=== PATIENT | female | born 1960 | race Caucasian/White ===

== ENCOUNTER 2019-01-14 16:15 | Emergency (ER) | payer OTHER, SELFPAY ==
[2019-01-14 16:16] VITALS: BP 142/82; PULSE 81; RESP 16; O2SAT 97
[2019-01-14 16:20] VITALS: BP 142/82; PULSE 88; RESP 16; TEMP 37.1; O2SAT 96
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
[2019-01-14] MEDS: Ketorolac 60 MG/2 ML Vial IM (16:45)
[2019-01-14 17:29] VITALS: BP 132/69; PULSE 69; RESP 16; O2SAT 97
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
== END 2019-01-14 17:50 | disposition home or self-care (01) ==
PROVIDERS: Emergency Provider Emergency Medicine
DX: S20.219A Contusion of unspecified front wall of thorax, initial encounter (principal); S30.1XXA Contusion of abdominal wall, initial encounter; V43.52XA Car driver injured in collision with other type car in traffic accident, initial encounter; Y93.9 Activity, unspecified; Y92.9 Unspecified place or not applicable; Y99.9 Unspecified external cause status
CPT/HCPCS: 71250; 74176; 96372; 99284; A4216

== ENCOUNTER → 2019-08-18 15:25 | Outpatient (CLI) | payer OTHER, SELFPAY ==
--- NOTE | 2019-08-18 15:36 | CT_ITS ---
STUDY: CT LEFT KNEE AND LEFT HIP WITHOUT CONTRAST REASON FOR EXAM: Female, 58 years old. Left hip osteoarthritis, surgical planning for Makoplasty. RADIATION DOSAGE (If Supplied By Facility): CTDIvol = ( 13.78 ) mGy, DLP = ( 857.75 ) mGycm TECHNIQUE: Transaxial CT imaging of the left hip and left knee was performed. Coronal and sagittal images were reformatted. Individualized dose optimization techniques were used for this CT. COMPARISON: None. FINDINGS: Images through the left hip and knee performed for the purpose of surgery planning for Makoplasty. Exam is performed for diagnostic purposes. Incidental note is made of degenerative disease at L5-S1 along with advanced degenerative disease at the left hip. Additionally degenerative disease with narrowing of the joint spaces at the level of the left knee, more so at the medial joint compartment. Diverticulosis with no signs of diverticulitis. Left ovarian cyst measuring approximately 2.5 cm. Bulbous uterus with calcification likely representing calcified fibroids. CT/Extremity Lower without Contra IMPRESSION: CT of the left hip and knee as described. Electronically Signed: Anna Morgan MD at 1:39 EDT , Service support ,
== END ==
PROVIDERS: Referring Provider Specialist; Visit Provider Specialist
DX: M16.12 Unilateral primary osteoarthritis, left hip (principal)
CPT/HCPCS: 73700

== ENCOUNTER 2019-09-30 08:19 | Observation (INO) | payer OTHER, SELFPAY ==
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
--- NOTE | 2019-09-24 15:21 | EKG12_ITS ---
Test Reason : PRE-OP Blood Pressure : / mmHG Vent. Rate : 077 BPM Atrial Rate : 077 BPM P-R Int : 154 ms QRS Dur : 100 ms QT Int : 382 ms P-R-T Axes : 067 -40 041 degrees QTc Int : 432 ms Normal sinus rhythm Left axis deviation Abnormal ECG Confirmed by OLIVIA QUEVEDO, DADA ([id number]), purchase request editor SUSANA GOLD ([id number]) on 09/28/2019 2:45:08 PM Referred By: BINA Confirmed By:MIGNON BAKER MD
[2019-09-24 16:15] LABS: Absolute Lymphocyte Count 2.26 X10^3/uL (0.83-4.51); Absolute Neutrophil Count 2.9 X10^3/uL (2.0-7.7); Basophil# 0.02 X10^3/uL; Basophil% 0.3 % (0-1); Eosinophil# 0.06 X10^3/uL; Hemoglobin 12.5 g/dL (12.0-15.0); Lymphocyte # 2.26 X10^3/ul (4.0); Lymphocyte % 37.4 % (19-41); Mean Corp Hgb Conc 32.1 g/dL (32-36); Mean Corpuscular Hgb 27.4 pg (27.0-32.0); Mean Corpuscular Volume 85.5 fL (81-99); Mean Platelet Vol. 9.6 fl (6.2-12.0); Monocyte# 0.81 X10^3/uL; Monocyte% 13.4 % (0-10); NRBC Flagged by Analyzer 0 % (0-5); Neutrophil # 2.88 X10^3/uL (2.7-7.7); Neutrophil % 47.7 % (47-70); Platelet Count 190 K/mm3 (150-450); RBC Distribution Width CV 13.2 % (11.6-14.6); RBC Distribution Width SD 41.4 fl (35.1-43.9); Red Blood Count 4.56 M/mm3 (4.2-5.4)
[2019-09-24 16:40] LABS: Anion Gap 6 (5-15); BUN 24 mg/dL (7-18); BUN/Creat Ratio 34.3 RATIO (10-20); Calcium,Total 8.7 mg/dL (8.5-10.1); Chloride 108 mmol/L (98-107); EST Glomerular Filtration Rate 91 mL/min (>60); Est Glom Filt Rate - Afr Amer 110 mL/min (>60); Glucose 108 mg/dL (74-106); Potassium 3.8 mmol/L (3.5-5.1); Sodium Level 141 mmol/L (136-145)
[2019-09-30] VITALS (14 sets, daily range): BP systolic 98–137; BP diastolic 55–77; PULSE 63–97; RESP 16–18; TEMP 36.1–36.9; O2SAT 97–100; BMI 30.8
[2019-09-30] MEDS: Lactated Ringers 1,000 ML 999 ML IV ×2 (09:05→12:42)
[2019-09-30 09:10] LABS: Bedside Glucose 75 mg/dL (70-110)
[2019-09-30] MEDS: Lactated Ringers 1,000 ML 100 ML IV (09:10)
[2019-09-30] MEDS: Celecoxib 200 MG Capsule 400 MG PO (09:11)
[2019-09-30] MEDS: Scopolamine 1mg/72hr Patch 1 PATCH TRANSDERM. (09:11)
[2019-09-30] MEDS: Gabapentin 600 MG Tablet PO (09:11)
[2019-09-30] MEDS: Acetaminophen 500 MG Tablet 1000 MG PO ×3 (09:11→21:06)
--- NOTE | 2019-09-30 10:35 | PCM.OPRPT ---
Report of Operation Date of Procedure: 09/30/19 Pre-Operative Diagnosis: Left hip primary osteoarthritis Post-Operative Diagnosis: Left hip primary osteoarthritis Surgery/Procedure Performed:: Left minimally invasive direct anterior hip replacement Description of Surgical Findings:: Stable hip with equal leg lengths systems requirements planner: Sage Cui Type of Anesthesia:: Spinal Anesthesiologist: Sharif Rivera Special Medications: 2 g Ancef, 2 g TXA lavage in wound prior to closure, 10 mg Decadron, joint cocktail (5 mg Duramorph, 30 mL of 0.5% Ropivicaine, 1000 units of epinephrine, 30 mg of Toradol) Specimen's removed: Bony cuts Estimated Blood Loss (mL): 200 Fluids Replaced: 1200 mL crystalloid Description of Procedure: Components used: 1. Accolade 2 Tamie femoral stem size 4, 132 2. Buckingham trident 2 acetabular shell size 48 mm 3. Tamie X3 polyethylene D 4. Tamie Biolox delta 32mm, -4mm femoral head Brief history operative indications: 56 yo F who failed conservative measures for their hip osteoarthritis. X-rays were consistent with osteoarthritis including joint space narrowing, osteophyte formation and subchondral cysts. Total hip replacement was discussed with the patient with risks and benefits including but not limited to blood loss, DVTs, PEs, neurovascular damage, dislocation, general risks of anesthesia including loss of life. Patient demonstrated an understanding medical clearance is obtained the patient was consented for surgery. Procedure: On the date of procedure the patient's L hip was marked in the preoperative area. Patient was then taken back to the operating room where anesthesia assumed control of the C-spine and airway and administered anesthetic. Patient was transferred to the operating table and placed in the supine position. The hips were placed at the break of the bed and a sacral bump was placed. The L lower extremity was then prepped out in a sterile fashion using chlorhexidine while the surgeon scrubbed. The PA was vital in the positioning of the patient. Upon reentering the room the L lower extremity was draped in the standard orthopedic fashion and the incision was marked. A timeout was called and everyone agreed upon the side, the site, the procedure be performed, antibody given, and patient's identity. At this time incision was made through skin, subcutaneous tissue, and fat down to fascia. The fascia was then incised and the TFL was retracted laterally. A retractor was placed on the lateral border of the femoral neck. Attention was directed to the inferior portion of the approach and all crossing vessels were identified and appropriately coagulated. A retractor was then placed on the medial portion of the femoral neck. The anterior capsule was then cleared of all soft tissue and then H shaped capsulotomy was made. The retractors were then placed inside the capsule. The femoral neck was identified and a cleanup cut was made. At this time a power corkscrew was used to remove the femoral head. Attention was then turned toward the acetabulum where the soft tissues were appropriately retracted and the acetabulum was sequentially reamed to 48 mm. A 48 mm cup was then selected and impacted into place. Acetabular liner was impacted into place and locking mechanism was verified. The position of the acetabular cup was then verified under live fluoroscopy. Attention was then turned to the femur. Soft tissue releases on the medial and lateral femoral neck were appropriately done, the leg was externally rotated and lateralized. A Penny retractor was placed medially and proximally to the greater trochanter this allowed appropriate visualization and exposure of the femoral canal. Rongeour was then used to remove excess lateral bone. A canal finder and entry broach were used to open the proximal canal. Once we verified we were down the femoral canal we subsequently broached up to a size 4 femur. The appropriate neck was placed in the previously selected head was trialed with a -4 mm neck. Traction was pulled and the hip was reduced with internal rotation. Once it was appropriately reduced and stability was checked. There was minimal shuck, equal leg lengths and appropriate stability with hyperextension and external rotation as well as with 90? flexion and internal rotation. Fluoroscopy was then also used to verify the position of the components and leg lengths using the contralateral side for comparison. The trial components were then dislocated the proximal femur was again exposed and the components were removed from the wound. The final components were verified and opened. The wound was copiously irrigated out with normal saline. The acetabulum was checked for any residual debris. The final components were placed and impacted. Traction and internal rotation were again used to reduce the hip. After adequate reduction the hip remained stable with appropriate leg lengths. The final components were once again checked with live fluoroscopy and were found to be satisfactory. The wound was then copiously irrigated with normal saline once more, and hemostasis was obtained. Closure was then done using #1 Vicryl runner to close the fascia. A 2-0 vicryl interuppted sutures were used to close the subcutaneous skin. A 3-0 Monocryl and Steri-Strips were used for final skin closure. A Silverlon dressing was placed. Patient was awakened by anesthesia and transferred to the [facility]. Patient was then transferred to the PACU for recovery. Postoperative plan: Patient will get 24 hours postop antibiotics. Patient will get in-house physical therapy and will be weight-bear as tolerated. Patient will follow up in office in 2 weeks for a wound check and x-rays. Grafts/Implants Used: Buckingham - Complications No intraoperative complications - Admit VTE Documentation VTE Present on Admission: No VTE Mechan Device Prophylaxis: SCD's, Thigh High LEOPOLDO Hose VTE Pharm Prophylaxis ordered?: Yes
[2019-09-30] MEDS: Cefazolin 2 GM in 0.9% Normal Saline 100 ML IV (10:46)
[2019-09-30] MEDS: dexAMETHasone 10 MG/ML Vial IV (10:59)
--- NOTE | 2019-09-30 11:19 | RAD_ITS ---
STUDY: X-RAY - PELVIS AND LEFT HIP REASON FOR EXAM: Female, 59 years old. POST OP TOTAL HIP TECHNIQUE: 1 views of the pelvis and hip. COMPARISON: None. FINDINGS: The patient is status post left total hip replacement. There is good alignment. RAD/Hip 1 view with Pelvis IMPRESSION: Status post left hip replacement. There is good alignment. Electronically Signed: Bigg Cristina, at 12:16 EDT , Service support ,
--- NOTE | 2019-09-30 12:45 | RAD_ITS ---
STUDY: X-RAY - PELVIS AND LEFT HIP REASON FOR EXAM: Female, 59 years old. POST OP LEFT HIP TECHNIQUE: 2 views of the pelvis and hip. COMPARISON: None. FINDINGS: The patient is status post left hip replacement. There is good alignment. Postoperative soft tissue changes. RAD/Hip Min 2 Views (Portable) IMPRESSION: Status post left total hip replacement. There is good alignment. Postoperative soft tissue changes. Electronically Signed: Bigg Cristina, at 13:03 EDT , Service support ,
[2019-09-30] MEDS: Lactated Ringers 1,000 ML 125 ML IV (13:43)
[2019-09-30] MEDS: Famotidine 20 MG Tablet PO (15:18)
--- NOTE | 2019-09-30 16:00 | CASEMGMT ---
RN CM KENNEL HAND CM to room to meet with patient for initial transition planning/care coordination assessment. RN EVANGELISTA introduced self and role at [facility].? Pt voices understanding and consents to assessment at this time.? Pt resting in bed in no distress at this time.? Pt is A/O at this time and answers all questions appropriately.?? Care providers, pharmacy, and demographics verified/updated at this time. PCP: Pt states does she just saw a family doctor for referral to Dr Whitt, but does not remember her name. Call placed to Dr Whitt's office. Pt's PCP is Dr Luic Guardado @ [facility] Practice Specialists: Dr Whitt--Orthopaedic surgeon Preferred Pharmacy:[facility] Retail Insurance: MMO Prescription Benefit:? [facility] does not have LW or HCPOA.? Interested in more information and would like to talk with to complete paperwork. Pt given Crm Functional Analyst card and AD info. ANNI, Latesha Bailon, made aware. LNOK: , Carlos. Living Arrangements: Lives with her and 20-yr old son lives with them. Pt's father also lives with them. Pt independent. Lives in a one-story home w/4 steps to enter, with railing. Transportation: Pt/. Denies transportation concerns. DME: [facility] has the following DME:?built-in shower chair, raised toilet seat, WW? Pt states no need for further DME at this time.? HHC/SNF: No history of SNF. Had HHC in the past after rt hip surgery about 7 yrs ago. Pt wishes to return home and states has no concerns with going home at time of discharge.?[facility] has OP therapy already set up @ [facility]. ? CM to follow for any discharge planning/needs.? Pt voices no concerns/needs at this time.? Advised pt to ask for CM if any further questions/concerns/needs arise.? Voices understanding. PLAN: Home w/OP therapy @ [facility] consult for NIMCO MENESES RN, CM
[2019-09-30] MEDS: Ensure Surgery 237 ML LIQUID PO (17:22)
[2019-09-30] MEDS: Ketorolac 15 MG/ML Vial IV (18:25)
[2019-09-30] MEDS: 0.9% Saline Lock 10 ML Syringe IV (18:25)
[2019-09-30] MEDS: Cefazolin 1 GM/50 ML BAG IV (18:25)
[2019-09-30] MEDS: traMADol 50 MG Tablet PO (19:55)
[2019-09-30] MEDS: Morphine 2 MG/ML Syringe IV (21:05)
[2019-09-30] MEDS: Senna/Docusate Sodium 1 Tablet 2 TABLET PO (21:06)
[2019-09-30] MEDS: Morphine 4 MG/ML Syringe IV (23:25)
[2019-10-01 03:00] VITALS: BP 118/57; PULSE 68; RESP 16; TEMP 36.9; O2SAT 98
[2019-10-01] MEDS: Ketorolac 15 MG/ML Vial IV ×2 (03:16→11:46)
[2019-10-01] MEDS: traMADol 50 MG Tablet PO ×2 (03:16→11:45)
[2019-10-01] MEDS: Cefazolin 1 GM/50 ML BAG IV (03:25)
[2019-10-01 05:49] LABS: Hemoglobin 9.2 g/dL (12.0-15.0); Mean Corp Hgb Conc 32.9 g/dL (32-36); Mean Corpuscular Hgb 28.1 pg (27.0-32.0); Mean Corpuscular Volume 85.6 fL (81-99); Mean Platelet Vol. 9.5 fl (6.2-12.0); Platelet Count 178 K/mm3 (150-450); RBC Distribution Width CV 13.2 % (11.6-14.6); RBC Distribution Width SD 41.1 fl (35.1-43.9); Red Blood Count 3.27 M/mm3 (4.2-5.4)
[2019-10-01 06:03] LABS: Anion Gap 5 (5-15); BUN 14 mg/dL (7-18); BUN/Creat Ratio 26.9 RATIO (10-20); Calcium,Total 8.3 mg/dL (8.5-10.1); Chloride 105 mmol/L (98-107); Creatinine, Serum 0.52 mg/dL (0.55-1.02); EST Glomerular Filtration Rate 128 mL/min (>60); Est Glom Filt Rate - Afr Amer 155 mL/min (>60); Estimated Creatinine Clearance 100.59 ml/min; Glucose 105 mg/dL (74-106); Potassium 3.9 mmol/L (3.5-5.1); Sodium Level 140 mmol/L (136-145)
[2019-10-01] MEDS: Acetaminophen 500 MG Tablet 1000 MG PO (06:31)
[2019-10-01] MEDS: Rivaroxaban 10 MG Tablet PO (06:31)
[2019-10-01 07:32] VITALS: BP 107/62; PULSE 64; RESP 16; TEMP 36.3; O2SAT 99
[2019-10-01] MEDS: Ensure Surgery 237 ML LIQUID PO ×2 (07:43→11:51)
[2019-10-01] MEDS: Senna/Docusate Sodium 1 Tablet 2 TABLET PO (07:43)
--- NOTE | 2019-10-01 09:10 | PCM.PN.ORT ---
Subjective: The patient was sitting in bedside chair upon examination. Patient denies any chest pain, shortness of breath, dizziness, lightheadedness, nausea or vomiting, or calf pain. Pain is controlled on medications. Patient reports having to dressing changes due to drainage. Other than the drainage patient's pain is been very well controlled and doing well postoperatively. Objective: Vital signs stable and afebrile. Patient is able to plantarflex and dorsiflex actively. Sensation is intact to light touch to saphenous, sural, superficial and deep peroneal, and tibial distribution. Dressing is drainage over the medial one third of the dressing with remaining dressing clean dry and intact. Thigh is soft and supple Negative Homans bilaterally, negative signs and symptoms of DVT. - Physical Exam Vitals/I&O's: Vital Signs Temp Pulse Resp BP Pulse Ox 97.3 F L 64 16 107/62 99 10/01/19 07:32 10/01/19 07:32 10/01/19 07:32 10/01/19 07:32 10/01/19 07:32 Oxygen Flow Rate (L/min) 6 Oxygen Delivery Method Room Air Weight: 81.4 kg Body Mass Index (BMI) 30.8 Intake and Output for Last 24 Hours 09/29/19 09/30/19 10/01/19 23:59 23:59 23:59 Intake Total 3440.00 / 3440.00 1650 / 1650 Balance 3440.00 / 3440.00 1650 / 1650 General: Alert, Oriented x3, Cooperative, No apparent distress Microbiology Past 72 Hours 09/29/19 09:05 Mucosa - Nasopharyngeal Coronavirus COVID-19 PCR - Final Laboratory Results 09/30/19 08:54: POC Glucose 75 10/01/19 05:23: WBC 11.0, RBC 3.27 L, Hgb 9.2 L, Hct 28.0 L, MCV 85.6, MCH 28.1, MCHC 32.9, RDW Std Deviation 41.1, RDW Coeff of [place] 13.2, Plt Count 178, MPV 9.5 10/01/19 05:23: Sodium 140, Potassium 3.9, Chloride 105, Carbon Dioxide 30.0, Anion Gap 5, BUN 14, Creatinine 0.52 L, Estim Creat Clear Calc 100.59, Est GFR (MDRD) Af Amer 155, Est GFR (MDRD) Non-Af 128, BUN/Creatinine Ratio 26.9 H, Glucose 105, Calcium 8.3 L Current Medications Acetaminophen (Tylenol) 1,000 mg PO Q8 COUNTS INCLUDE 234 BEDS AT THE [facility] Last Admin: 10/01/19 06:31 Dose: 1,000 mg Documented by: Enteral Nutritional Formula (Ensure Surgery) 237 ml PO TIDCM COUNTS INCLUDE 234 BEDS AT THE [facility] Last Admin: 10/01/19 07:43 Dose: 237 ml Documented by: Famotidine (Pepcid) 20 mg PO DAILY COUNTS INCLUDE 234 BEDS AT THE [facility] Last Admin: 10/01/19 07:43 Dose: Not Given Documented by: Sodium Chloride () 250 mls @ 15 mls/hr IV .[id number] PRN PRN Reason: Saline Flush Ketorolac Tromethamine (Toradol (Bkc)) 15 mg IV Q6H PRN PRN PRN Reason: Pain Score 1-5/10 Stop: 10/02/19 18:01 Last Admin: 10/01/19 03:16 Dose: 15 mg Documented by: Meloxicam (Mobic) 7.5 mg PO BID COUNTS INCLUDE 234 BEDS AT THE [facility] Morphine Sulfate () 2 - 4 mg IV Q2H PRN PRN PRN Reason: Pain Score 4-10/10 Last Admin: 09/30/19 21:05 Dose: 2 mg Documented by: Morphine Sulfate () 2 - 4 mg IV Q2H PRN PRN PRN Reason: Pain Score 4-10/10 Last Admin: 09/30/19 23:25 Dose: 4 mg Documented by: Ondansetron HCl (Zofran) 4 mg IV Q8H PRN PRN PRN Reason: NAUSEA Promethazine HCl (Phenergan) 12.5 mg IM Q6H PRN PRN; Protocol PRN Reason: NAUSEA/VOMITING Rivaroxaban (Xarelto) 10 mg PO DAILY@0600 COUNTS INCLUDE 234 BEDS AT THE [facility] Last Admin: 10/01/19 06:31 Dose: 10 mg Documented by: Senna/Docusate Sodium (Senokot-S, Gisselle-Colace) 2 tablet PO BID COUNTS INCLUDE 234 BEDS AT THE [facility] Last Admin: 10/01/19 07:43 Dose: 2 tablet Documented by: Sodium Chloride () 10 - 40 ml IV UD PRN PRN Reason: SALINE FLUSH Last Admin: 09/30/19 18:25 Dose: 10 ml Documented by: Tramadol HCl (Ultram) 50 - 100 mg PO Q6H PRN PRN PRN Reason: Pain Score 4-10/10 Last Admin: 10/01/19 03:16 Dose: 100 mg Documented by: Medical Necessity - Tobacco Use Smoking Status: Former smoker Tobacco Use: Non-smoker Assessment/Plan 1. S/P left direct anterior total hip arthroplasty POD #1 2. Continue Pain Medications: Tylenol and tramadol 3. DVT Prophylaxis: Xarelto due to underlying factor V Leiden. Will use Xarelto for 2 weeks postoperatively and then switch over to aspirin 81 mg at her 2-week postop visit 4. PT/OT: Weightbearing as tolerated 5. H & H: 9.2/28.0, asymptomatic 6. Encouraged Incentive Spirometry 7. Disposition: Patient did have some postoperative draining that did require dressing changes. We will continue to monitor this dressing through the morning. Patient may have to require additional dressing or switch over to ABDs. Plan will be for discharge home today unless there are complications with drainage. Please contact orthopedics if this changes. Otherwise will plan for discharge with prescriptions sent to [facility]. Patient will follow-up per postop instructions. She has outpatient physical therapy established. I have reviewed the [place] Automated Rx Reporting System (OARRS) report for this patient for refill pattern and other prescriber involvement as part of the appropriate surveillance for the provision of acute and chronic controlled medications. The report was requested and reviewed on the date of this entry and was considered in the prescribing process.
--- NOTE | 2019-10-01 09:19 | DCINST_ITS ---
Discharge Diet: No Restrictions Discharge Activity: May Not Drive - while taking narcotic pain medications. May shower in (days): 1 - Dressing must be intact to skin. Turn dressing away from water Ice area for (Minutes): 20 - Every 1-2 hours while awake Weight Bearing Status: Weight bearing as tolerated Elevate: Operative Extremity Additional Activity Instructions:: Wear elastic stockings for 2 weeks. DO NOT use alcohol with narcotic pain medication. DO NOT make important decisions while taking narcotic medication. If you have problems with taking your medication (rash, itching, nausea, etc.) call the office at once. Call your doctor if your incision/area has: Increased Pain/ Swelling, Increased Redness, Foul Smelling Discharge Call your doctor if you observe: Fever of 101 or Higher Remove Dressing in (days):: 4 - Okay to remove dressing on October 05, 2019 Additional Instructions: Follow orthopedic postop instructions Allergies/Adverse Reactions: Allergies No Known Allergies Allergy (Verified 09/30/19 08:46) Medications to take at Discharge Cholecalciferol (Vitamin D3) [Vitamin D3] 25 mcg PO DAILY 09/23/19 Acetaminophen [Tylenol] 1,000 mg PO Q8 #100 tab 10/01/19 Rivaroxaban [Xarelto] 10 mg PO DAILY@0600 #13 tab 10/01/19 Senna/Docusate Sodium [Senokot-S] 2 tab PO BID #10 tab 10/01/19 traMADol [Ultram] 50 - 100 mg PO Q6H PRN PRN 6 Days #48 tablet 10/01/19 The following prescriptions were given: Senna/Docusate Sodium [Senokot-S] 2 tab PO BID #10 tab Transmission Status: Pending to [facility] Acetaminophen [Tylenol] 1,000 mg PO Q8 #100 tab Transmission Status: Pending to [facility] traMADol [Ultram] 50 - 100 mg PO Q6H PRN PRN 6 Days #48 tablet PRN Reason: Pain Score 4-10/10 Transmission Status: Sent to [facility] Rivaroxaban [Xarelto] 10 mg PO DAILY@0600 #13 tab Transmission Status: Pending to [facility] Primary Care Physician: Luci Guardado NP-C [Primary Care Provider] - Test Results: Test results from this visit will be discussed in further detail at your follow- up appointment, if applicable. Please Follow Up With: Physical Therapy When: 10/05/19 Please Follow Up With: Imer Hogan PA-C When: 10/14/19 @ 9:00 am
--- NOTE | 2019-10-01 10:11 | CASEMGMT ---
Social Work Note SW received referral for advanced directives. Pt completed advanced directives. Original provided to pt and copy placed on pt's chart. Latesha Savage BLOOD DONOR RECRUITER, EMPLOYEE ADVISER
--- NOTE | 2019-10-01 11:41 | PHA.DC.MC ---
Pharmacy Service has performed discharge medication reconciliation and counseling for this patient. 1. TRAMADOL 50-100MH PO Q6H PRN PAIN 4-10/10 FOR 6 DAYS 2. SENNA/DOCUSATE 2T PO BID X 5 DAYS 3. RIVAROXABAN 10MG PO DAILY 4. ACETAMINOPHEN 1000MG PO Q8H The patient's discharge medication list was reviewed for discrepancies and discrepancies were resolved. Home Medications Cholecalciferol (Vitamin D3) [Vitamin D3] 25 mcg PO DAILY 09/23/19 Acetaminophen [Tylenol] 1,000 mg PO Q8 #100 tab 10/01/19 Rivaroxaban [Xarelto] 10 mg PO DAILY@0600 #13 tab 10/01/19 Senna/Docusate Sodium [Senokot-S] 2 tab PO BID #10 tab 10/01/19 traMADol [Ultram] 50 - 100 mg PO Q6H PRN PRN 6 Days #48 tab 10/01/19 The patient was counseled on the following discharge medications and changes in medications for homegoing were reviewed. The Reason for Use, instructions for use, and potential side effects were reviewed for all new medications. The patient's questions regarding all of their medications were answered. The patient was able to verbally demonstrate an understanding of their discharge medications.
[2019-10-01] MEDS: 0.9% Saline Lock 10 ML Syringe IV (11:46)
== END 2019-10-01 13:55 | disposition home or self-care (01) ==
LOC: SDC 09:16 → MS3 09:16
PROVIDERS: Admitting Provider Specialist; PCP Nurse Practitioner Family; Referring Provider Specialist; Visit Provider Specialist
PROC: (CPT 27284; principal; 2019-09-30 09:35)
DX: M16.12 Unilateral primary osteoarthritis, left hip (principal); R94.31 Abnormal electrocardiogram [ECG] [EKG]; Z87.891 Personal history of nicotine dependence; D68.51 Activated protein C resistance
CPT/HCPCS: 01214; 27130; 73501; 73502; 76000; 80048; 82962; 85025; 85027; 87081; 87635; 93005; 96361; 96365; 96366; 96375; 96376; 97110; 97116; 97162; 97166; 99218; 99251; C1776; G2023; J7120; A4216; G0378; G0379; G0463; U0002

== ENCOUNTER → 2022-04-27 | Outpatient (CLI) | payer OTHER, SELFPAY ==
--- NOTE | 2022-04-27 09:35 | NM_ITS ---
STUDY: THREE-PHASE BONE SCAN. REASON FOR EXAM: Female, 61 years old. ABNORMAL FINDINGS PROXIMAL RIGHT FEMUR TECHNIQUE: 26.3 mCi of technetium labeled MDP were given intravenously. A three-phase bone scan with special attention to the pelvis was performed. COMPARISON: None. FINDINGS: There is evidence of bilateral hip replacement. On the blood flow imaging sequence, no increased blood flow is seen. On the blood pool images, no abnormality is present. On the delayed images, there is mild uptake in the left cervical region most likely representing degenerative changes. There is no evidence of abnormal uptake in the femurs. NM/Bone Scan Three Phase IMPRESSION: No abnormal uptake in the region of the femurs. The patient is status post bilateral total hip replacement. Electronically Signed: Bigg Cristina MD at 8:04 EST ,
== END | disposition home or self-care (01) ==
LOC: NM 09:34
PROVIDERS: PCP Nurse Practitioner Family; Visit Provider Specialist
DX: R93.6 Abnormal findings on diagnostic imaging of limbs (principal)
CPT/HCPCS: 78315; A9503